=== PATIENT | male | born 1965 | race Caucasian/White ===

== ENCOUNTER → 2016-10-14 | Outpatient (CLI) | payer OTHER ==
--- NOTE | 2016-10-14 14:01 | Diagnostic Imaging Report ---
PA and lateral views of the chest Indication: Cough Findings: The lungs are clear. The heart size is normal. There is no effusion or pneumothorax The mediastinum and dennise appear unremarkable. Impression: Unremarkable study. Dictated by: Dictated on workstation # [id number]
== END ==
LOC: RAD 13:03
PROVIDERS: ATTEND Family Medicine
DX: R05 Cough (principal)
CPT/HCPCS: 71020

== ENCOUNTER 2016-10-22 16:50 | Emergency (ER) | payer OTHER ==
[~2016-10-22] VITALS: Ht 177.8 cm; Wt 83.9 kg
--- NOTE | 2016-10-22 17:04 | ED General ---
General Chief Complaint: Dizziness/Syncope Stated Complaint: DIZZY Nursing Triage Note: patient reports dizziness since tuesday, patient went to pcp and was given medication for dizziness and didn't improve. was sent here by pcp for CT Nursing Sepsis Screen: No Definite Risk Source of Information: Patient Exam Limitations: No Limitations History of Present Illness Time Seen by Provider: 17:02 Initial Comments To ER with dizziness since Tuesday. He's never had this before. Today is Tuesday. He saw Dr. Dr. Iqbal the onset of this and was given meclizine. States that it doesn't help much, just makes him sleepy. States that he certainly nonfunctional will taking the meclizine. States that when he walks he drifts to the left. He does not notice any headaches or unilateral weakness. He was sent here by Dr. Kim's office. He saw Dr. Dr. Iqbal today for follow-up and denied improvement. Dr. Iqbal spoke with neurology at [facility] who recommended he be sent to the emergency room for CT angiogram and schedule an MRI. Timing/Duration: 1-2 Days Severity: Moderate Allergies and Home Medications Allergies Coded Allergies: No Allergy Information Available (Unverified , 10/22/16) Home Medications Diazepam 2 Mg Tablet, #28 (Reported) Montelukast Sodium 10 Mg Tablet, #30 (Reported) Constitutional: see HPI EENTM: see HPI Respiratory: no symptoms reported Cardiovascular: no symptoms reported Genitourinary: no symptoms reported Musculoskeletal: no symptoms reported Skin: no symptoms reported Psychiatric/Neurological: No Symptoms Reported Hematologic/Lymphatic: No Symptoms Reported Past Ktvbyzk-Lfvotk-Zwuhlv Hx Patient Social History Alcohol Use: Denies Use Recreational Drug Use: No Smoking Status: Never a Smoker Recent Foreign Travel: No Contact w/Someone Who Travel: No Recent Infectious Disease Expo: No Surgeries Surgeries: Orthopedic Physical Exam Vital Signs Vital Sign - Last 12Hours 10/22/16 16:55 Temp 98.2 Pulse 72 Resp 18 B/P (MAP) 142/95 Pulse Ox 97 O2 Delivery Room Air Capillary Refill : Less Than 3 Seconds General Appearance: No Apparent Distress, WD/WN Eyes: Bilateral Eye EOMI, Bilateral Eye Normal Inspection, Bilateral Eye PERRL HEENT: PERRL/EOMI, TMs Normal, Other (there is some horizontal nystagmus) Neck: Full Range of Motion, Normal Inspection Respiratory: No Accessory Muscle Use, No Respiratory Distress Cardiovascular: Regular Rate, Rhythm, Normal Peripheral Pulses Extremity: Normal Capillary Refill, Normal Inspection Neurologic/Psychiatric: Alert, Oriented x3, No Motor/Sensory Deficits Skin: Normal Color, Warm/Dry Progress/Results/Core Measures Results/Orders My Orders Orders - TIKA BANSAL APRN Saline Lock/Iv-Start (10/22/16 16:53) Ct Angio Head/Neck (10/22/16 16:53) Mri Brain W/Wo Contrast (10/22/16 17:01) Ns Iv 1000 Ml (Sodium Chloride 0.9%) (10/22/16 17:15) Iohexol Injection (Omnipaque 350 Mg/Ml 1 (10/22/16 17:15) Ns (Ivpb) (Sodium Chloride 0.9% Ivpb Bag (10/22/16 17:15) Medications Given in ED Current Medications Medications Dose Ordered Sig/Wilmer Route Start Time Stop Time Status Last Admin Dose Admin Iohexol 100 ml ONCE ONCE IV 10/22/16 17:15 10/22/16 17:16 DC 10/22/16 17:13 85 ML Sodium Chloride 100 ml ONCE ONCE IV 10/22/16 17:15 10/22/16 17:16 DC 10/22/16 17:13 80 ML Vital Signs/I&O Vital Sign - Last 12Hours 10/22/16 16:55 Temp 98.2 Pulse 72 Resp 18 B/P (MAP) 142/95 Pulse Ox 97 O2 Delivery Room Air Blood Pressure Mean: 111 Diagnostic Imaging Diagonstic Imaging: CT Comments MED REC#: [id number] PT STATUS: REG ER : 1965 PHYSICIAN: TIKA BANSAL APRN ADMIT DATE: 10/22/16/ER Draft Date of Exam:10/22/16 CT ANGIO HEAD/NECK PROCEDURE: CT angiography of the head and CT angiography of the neck with and without contrast. TECHNIQUE: Contiguous noncontrast images were obtained from the skull base through the vertex. After intravenous contrast administration, helical CT angiography of the neck was performed. Source data was reformatted into multiple MIP projections. Delayed post contrast acquisition was also obtained. INDICATION: 51-year-old male presents with dizziness for two days, family history of genetic factor for clotting abnormality. Family history of stroke. COMPARISON: CT head from 10/22/16, MRI brain 10/22/16. FINDINGS: There is normal arch origin of the great vessels. Both common carotid arteries are widely patent. Carotid bifurcations, cervical, high cervical, petrous and cavernous segments of both ICA are normal. The A1 and A2 segments of both WILI, M1, M2 and M3 trifurcation vessels of both MCA fill normally. The vertebral arteries are codominant and are widely patent to the skull base. The PICA, basilar artery, AICA, SCA and industry consultant are unremarkable. There is a origin of the right LAST REMODELER REPAIRER with near origin of the left LAST REMODELER REPAIRER due to prominent posterior communicating arteries. This is a normal variation. Lung apices are clear. Superior mediastinum is normal. The parapharyngeal and paraspinous soft tissues are also unremarkable. There is some mild age-appropriate cervical spondylosis with multilevel hypertrophic facet changes. IMPRESSION: 1. Unremarkable CTA head and neck. 2. Some mild cervical spondylosis. Additional nonemergent findings as described above. Dictated on workstation # [id number] Dict: 10/22/161741 Trans: 10/22/161747 [facility] [id number] Interpreted by: DHAVAL MOREIRA MD Electronically signed by: Departure Communication Progress Notes 1913-MRI shows T2 hyperintensities throughout. This concludes small vessel disease or a demyelinating process. 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 He does not take a baby aspirin I advised him to start taking a baby aspirin daily. I discussed the MRI findings with Dr. Hightower, neurologist at the [facility]. She states this is a common finding in the differential is broad. She feels that most certainly workup for this could be deferred to the outpatient setting with a neurologist. Patient is agreeable to this. Impression Impression: Primary Impression: Vertigo Additional Impression: MRI of brain abnormal Disposition: HOME, SELF-CARE Condition: Stable Departure-Patient Inst. Decision time for Depature: 18:21 Referrals: HANNY IQBAL DO (PCP/Family) Primary Care Physician Patient Instructions: Vertigo (a Type of Dizziness) (DC) Add. Discharge Instructions: 1. Follow-up with Dr. Dr. Iqbal on Tuesday for referral to a neurologist 2. Return to ER for any concerns All discharge instructions reviewed with patient and/or family. Voiced understanding. Work/School Note: Work Release Form Date Seen in the Emergency Department: Oct 22, 2016 Return to Work: Oct 24, 2016 Restrictions: No Restrictions Copy Copies To 1: HANNY IQBAL PETER J APRN Oct 22, 2016 17:04
[2016-10-22] MEDS ORDERED: DIAZ2TAB2 (17:05)
[2016-10-22] MEDS ORDERED: MONT10TA24 (17:05)
[2016-10-22] MEDS: IOHEXOL 350 MG/ML 100 ML (OMNIPAQUE 350) VIAL IV ONE (17:13)
[2016-10-22] MEDS: NS 100 ML (IVPB) BAG IV ONE (17:13)
[2016-10-22] MEDS ORDERED: GADOBUTROL 10 MMOL/10 ML (GADAVIST) VIAL IV ONE (17:45)
--- NOTE | 2016-10-22 17:48 | Diagnostic Imaging Report ---
PROCEDURE: CT angiography of the head and CT angiography of the neck with and without contrast. TECHNIQUE: Contiguous noncontrast images were obtained from the skull base through the vertex. After intravenous contrast administration, helical CT angiography of the neck was performed. Source data was reformatted into multiple MIP projections. Delayed post contrast acquisition was also obtained. INDICATION: 51-year-old male presents with dizziness for two days, family history of genetic factor for clotting abnormality. Family history of stroke. COMPARISON: CT head from 10/22/16, MRI brain 10/22/16. FINDINGS: There is normal arch origin of the great vessels. Both common carotid arteries are widely patent. Carotid bifurcations, cervical, high cervical, petrous and cavernous segments of both ICA are normal. The A1 and A2 segments of both WILI, M1, M2 and M3 trifurcation vessels of both MCA fill normally. The vertebral arteries are codominant and are widely patent to the skull base. The PICA, basilar artery, AICA, SCA and local hazmat driver are unremarkable. There is a origin of the right NETWORK OPERATIONS SPECIALIST with near origin of the left NETWORK OPERATIONS SPECIALIST due to prominent posterior communicating arteries. This is a normal variation. Lung apices are clear. Superior mediastinum is normal. The parapharyngeal and paraspinous soft tissues are also unremarkable. There is some mild age-appropriate cervical spondylosis with multilevel hypertrophic facet changes. IMPRESSION: 1. Unremarkable CTA head and neck. 2. Some mild cervical spondylosis. Additional nonemergent findings as described above. Dictated by: Dictated on workstation # [id number]
--- NOTE | 2016-10-22 18:17 | Diagnostic Imaging Report ---
PROCEDURE: MR imaging of the brain with and without contrast. TECHNIQUE: Multiplanar, multisequence MR imaging of the brain was performed with and without contrast. INDICATION: 51-year-old male with persistent dizziness for three days. COMPARISON: CT head from 10/22/16, CTA head and neck from 10/22/16. FINDINGS: Midline structures are not displaced. Lateral, third and fourth ventricles are normal in size, shape and anatomic position. There is no evidence of mass, mass effect, hydrocephalus or hemorrhage. There are, however, multiple subcortical, periventricular as well as deep white matter T2 hyperintensities, best appreciated on the FLAIR signal. No area of diffusion restriction or diffusion signal abnormality is seen. No abnormal areas of enhancement are seen. López-white differentiation is well maintained. There is no sulcal effacement. There are no abnormal extra-axial fluid collections or hemorrhage. Petrous apices as well as the seventh and eighth nerve complexes are normal. Semicircular canal and cochlea show normal signal. Visualized vascular flow voids are unremarkable. Craniovertebral junction is normal. The sellar and suprasellar regions are unremarkable. Sinuses show acute on chronic pansinusitis. Orbits and mastoid air cells are grossly normal. IMPRESSION: 1. Extensive periventricular, subcortical and deep white matter T2 hyperintensities, advanced for age. Although the differential does include small vessel disease, the pattern and distribution of which also suggests a demyelinating process such as MS. There is, however, no evidence of diffusion restriction or abnormal areas of enhancement to suggest active areas of demyelination. Correlate clinically and with serology. 2. Acute on chronic pansinusitis. Additional nonemergent findings as described above. Dictated by: Dictated on workstation # [id number]
[2016-10-22] MEDS: NS IV 1000 ML 1,000 ML IV SCH (18:23)
[2016-10-22] MEDS: DEXAMETHASONE PF 10 MG/ML (DECADRON) VIAL IV ONE (19:17)
[2016-10-22] MEDS: DEXAMETHASONE PF 10 MG/ML (DECADRON) VIAL ONE (19:34)
[2016-10-22 19:39] VITALS: BP 143/93
== END 2016-10-22 19:39 | disposition home or self-care (01) ==
LOC: EDUNIT# 16:50 → ER 16:52
DX: H81.12 Benign paroxysmal vertigo, left ear (principal); D68.59 Other primary thrombophilia; R94.02 Abnormal brain scan
CPT/HCPCS: 70496; 70498; 70553

== ENCOUNTER → 2016-10-22 | Outpatient (CLI) | payer OTHER ==
[~2016-10-22] MED LIST: DIAZ2TAB2; MONT10TA24
--- NOTE | 2016-10-22 13:42 | Diagnostic Imaging Report ---
CLINICAL INDICATION: Patient with dizziness since Tuesday. No injury. EXAM: Axial CT scan of the brain performed without IV contrast. COMPARISON: None. FINDINGS: There is no evidence of acute cerebral infarct, intracranial hemorrhage, or gross mass effect. There is a few focal and patchy areas of low-attenuation white matter changes seen within both cerebral hemispheres predominantly in the subcortical regions. There is normal kingston-white matter distinction. The brain parenchymal volume appears appropriate for patient's age. There is no significant midline shift or herniation. There is no evidence of hydrocephalus. The basal cisterns are unremarkable. The skull, extracranial soft tissue, and orbits are unremarkable. There is a small mucous retention cyst involving the right maxillary sinus. There is moderate mucosal thickening involving the ethmoid sinus and mild mucosal thickening involving the sphenoid sinus. IMPRESSION: 1: There are nonspecific focal and patchy areas of low-attenuation white matter changes in both cerebral hemispheres. Given patient's age, these may represent chronic small vessel ischemic changes. Since there is no prior brain imaging for comparison, other etiologies such as ischemic process, vasculitis, or demyelinating process. If there is concern for acute process, then MRI of the brain with and without IV contrast would help better evaluate. 2: Otherwise, the remainder of the brain is unremarkable for patient's age. Report was called and faxed to Tania/college service officer of Dr. Olivas by cassidy at 1:41 p.m. Dictated by: Dictated on workstation # [id number]
== END ==
LOC: RAD 11:52
PROVIDERS: ATTEND Family Medicine
DX: R42 Dizziness and giddiness (principal)
CPT/HCPCS: 70450

== ENCOUNTER → 2017-01-14 | Outpatient (CLI) | payer OTHER ==
--- NOTE | 2017-01-14 11:47 | Diagnostic Imaging Report ---
PROCEDURE: US Carotid Duplex Bilateral. TECHNIQUE: Multiple real-time grayscale images were obtained over the carotid arteries in various projections bilaterally. Additional duplex Doppler and color Doppler images were also obtained. Indication: Intermittent dizziness, carotid stenosis. Comparison: None. Discussion: Sonographic evaluation of the common and internal carotid arteries and bilateral vertebral arteries was performed with a linear transducer. Images were assessed for grayscale appearance, spectral and color Doppler blood flow. No significant atherosclerotic plaque identified within either carotid bifurcation. Normal flow velocities are present within the bilateral internal and external carotid arteries. Normal antegrade flow within the bilateral vertebral arteries. Impression: 1. The bilateral carotid bifurcations are widely patent. Dictated by: Dictated on workstation # [id number]
== END ==
LOC: RAD 10:29
PROVIDERS: ATTEND Otolaryngology Otolaryngology/Facial Plastic Surgery
DX: R42 Dizziness and giddiness (principal); Z83.2 Family history of diseases of the blood and blood-forming organs and certain disorders involving the immune mechanism
CPT/HCPCS: 93005; 93880

== ENCOUNTER → 2017-01-28 | Outpatient (CLI) | payer OTHER | LOC: CARD 08:41 | PROVIDERS: ATTEND Otolaryngology Otolaryngology/Facial Plastic Surgery | DX: I34.0 Nonrheumatic mitral (valve) insufficiency (principal) | CPT/HCPCS: 93306 ==

== ENCOUNTER 2018-01-22 10:32 | Emergency (ER) | payer OTHER ==
[~2018-01-22] VITALS: Ht 177.8 cm; Wt 86.2 kg
[2018-01-22] MEDS ORDERED: ASPIRIN 81 MG CHEW (CHILDREN'S ASA) PO ONE (10:45)
[2018-01-22 10:53] LABS: BASOPHILS % (AUTO) 0 % (0-10); EOSINOPHILS # (AUTO) 0.5 10^3/uL (0.0-0.3); EOSINOPHILS % (AUTO) 6 % (0-10); HEMATOCRIT 32 % (40-54); HEMOGLOBIN 11.6 G/DL (13.3-17.7); LYMPHOCYTES # (AUTO) 3.1 X 10^3 (1.0-4.0); LYMPHOCYTES % (AUTO) 39 % (12-44); MEAN CORPUSCULAR HEMOGLOBIN 34 PG (25-34); MEAN CORPUSCULAR HGB CONC 37 G/DL (32-36); MEAN CORPUSCULAR VOLUME 94 FL (80-99); MONOCYTES # (AUTO) 0.8 X 10^3 (0.0-1.0); MONOCYTES % (AUTO) 9 % (0-12); NEUTROPHILS # (AUTO) 3.7 X 10^3 (1.8-7.8); NEUTROPHILS % (AUTO) 46 % (42-75); PLATELET COUNT 228 10^3/uL (130-400); RED BLOOD COUNT 3.37 10^6/uL (4.35-5.85); RED CELL DISTRIBUTION WIDTH 12.5 % (10.0-14.5); WHITE BLOOD COUNT 8.1 10^3/uL (4.3-11.0)
[2018-01-22 11:12] LABS: ALANINE AMINOTRANSFERASE 76 U/L (0-55); ALBUMIN 4.4 GM/DL (3.2-4.5); ALKALINE PHOSPHATASE 92 U/L (40-136); BILIRUBIN,TOTAL 0.6 MG/DL (0.1-1.0); BUN/CREATININE RATIO 16; CALCIUM 9.5 MG/DL (8.5-10.1); CARBON DIOXIDE 18 MMOL/L (21-32); CHLORIDE 108 MMOL/L (98-107); CREATININE SERUM 1.07 MG/DL (0.60-1.30); GFR ESTIMATED > 60; GLUCOSE 108 MG/DL (70-105); MAGNESIUM 2.1 MG/DL (1.8-2.4); POTASSIUM 3.4 MMOL/L (3.6-5.0); SODIUM 139 MMOL/L (135-145)
[2018-01-22 11:13] LABS: INR 1.1 (0.8-1.4); PROTHROMBIN TIME PATIENT 13.7 SEC (12.2-14.7)
[2018-01-22 11:15] VITALS: BP 134/83
[2018-01-22 11:18] LABS: MYOGLOBIN SERUM 36.3 NG/ML (10.0-92.0)
--- NOTE | 2018-01-22 11:18 | Diagnostic Imaging Report ---
INDICATION: Syncope COMPARISON: 10/14/2016 TECHNIQUE: Single frontal radiograph of the chest dated 01/22/2018. FINDINGS: The cardiac silhouette is upper limits of normal in size. No significant pulmonary vascular congestion. The lungs are clear. No pleural effusion. No pneumothorax. No acute osseous abnormality. IMPRESSION: Stable appearing examination without acute cardiopulmonary abnormality. Dictated by: Dictated on workstation # [id number]
--- NOTE | 2018-01-22 11:29 | ED Syncope ---
General Chief Complaint: Dizziness/Syncope Stated Complaint: SYNCOPE Nursing Triage Note: WAS BROUGHT TO ED BY FRIENDS FROM [facility] REQUEST TO US BATHROOM ON ADMIT. REPORTS THAT HE HAS TROUBLE WITH CONSTIPATION AND HE TOOK A LAXATIE LAST NIGHT,AND TODAY WAS GIVING COMMUNION AT [facility] WHEN HE FELT HIS ABD START CRAMPING THAN BECAME DIZZY THAT IS THE LAST THING HE REMEMBERED. History of Present Illness Date Seen by Provider: Jan 22, 2018 Time Seen by Provider: 10:32 Initial Comments Here with report of syncopal episode while at [facility]. 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 He was hopeful that he was going to be able to make it through communion and then try to go to the bathroom but cramping became quite severe. This is when he got sweaty and pale. He was noted by other parishioners and then taken to a side room. He did pass out while sitting at a chair. No injury from that and he was only out for a few seconds before regaining consciousness. On arrival here he did have a large bowel movement. States that he has been constipated recently and took laxative last night which appears to be working quite well now. States he does suffer from intermittent constipation. Timing/Prior Episodes: Remote History, Single Episode Today Symptoms Prior to Episode: Lightheadedness, Nausea, Pain, Other (abdominal cramping) Precipitating Factors: Activity Loss of Consciousness: Brief (Seconds) Current Symptoms: Back to Normal; No Chest Pain, No Injury, No Lightheadedness , No Shallow/Rapid Breathing, No Weak/Absent Pulse, No Weakness Allergies and Home Medications Allergies Coded Allergies: No Allergy Information Available (Unverified , 10/22/16) Home Medications No Active Prescriptions or Reported Meds Patient Home Medication List Home Medication List Reviewed: Yes Review of Systems Constitutional: see HPI; No chills; diaphoresis; No fever; weakness EENTM: no symptoms reported Respiratory: see HPI; No cough, No wheezing Cardiovascular: No chest pain; syncope Gastrointestinal: abdominal pain, constipation; No nausea, No vomiting Genitourinary: no symptoms reported Musculoskeletal: no symptoms reported Skin: change in color; No lesions Psychiatric/Neurological: See HPI All Other Systems Reviewed Negative Unless Noted: Yes Past Lddoles-Zmgksn-Kcvjbq Hx Past Med/Social Hx: Reviewed Nursing Past Med/Soc Hx Patient Social History Alcohol Use: Denies Use Recreational Drug Use: No Smoking Status: Never a Smoker Recent Foreign Travel: No Contact w/Someone Who Travel: No Recent Infectious Disease Expo: No Past Medical History Surgeries: Yes (R knee, L knee scope) Orthopedic Respiratory: No Cardiac: No Neurological: No Genitourinary: No Gastrointestinal: No Musculoskeletal: No Endocrine: No HEENT: No Cancer: No Psychosocial: No Integumentary: No Blood Disorders: No Family Medical History Reviewed Nursing Family Hx No Pertinent Family Hx Physical Exam Vital Signs Vital Signs - First Documented 01/22/18 10:32 Temp 96.8 Pulse 52 Resp 18 B/P (MAP) 138/81 (100) Pulse Ox 100 O2 Delivery Room Air Capillary Refill : Less Than 3 Seconds Height, Weight, BMI Height: 5'10.00" Weight: 190lbs. oz. 86.446047ci; BMI Method:Stated General Appearance: No Apparent Distress, WD/WN HEENT: PERRL/EOMI, Pharynx Normal Neck: Non Tender, Supple Cardiovascular: Regular Rate, Rhythm, No Murmur Respiratory: Lungs Clear, Normal Breath Sounds Gastrointestinal: Non Tender, Soft Back: Normal Inspection, No CVA Tenderness, No Vertebral Tenderness Extremities: Normal Range of Motion, Non Tender Neurologic/Psychiatric: Alert, Oriented x3 Cranial Nerves: Normal Hearing, Normal Speech Motor/Sensory: No Motor Deficit, No Sensory Deficit Skin: Normal Color, Warm/Dry Progress/Results/Core Measures Results/Orders Lab Results Laboratory Tests Test 01/22/18 10:45 01/22/18 10:51 Range/Units White Blood Count 8.1 4.3-11.0 10^3/uL Red Blood Count 3.37 L 4.35-5.85 10^6/uL Hemoglobin 11.6 L 13.3-17.7 G/DL Hematocrit 32 L 40-54 % Mean Corpuscular Volume 94 80-99 FL Mean Corpuscular Hemoglobin 34 25-34 PG Mean Corpuscular Hemoglobin Concent 37 H 32-36 G/DL Red Cell Distribution Width 12.5 10.0-14.5 % Platelet Count 228 130-400 10^3/uL Mean Platelet Volume 10.0 7.4-10.4 FL Neutrophils (%) (Auto) 46 42-75 % Lymphocytes (%) (Auto) 39 12-44 % Monocytes (%) (Auto) 9 0-12 % Eosinophils (%) (Auto) 6 0-10 % Basophils (%) (Auto) 0 0-10 % Neutrophils # (Auto) 3.7 1.8-7.8 X 10^3 Lymphocytes # (Auto) 3.1 1.0-4.0 X 10^3 Monocytes # (Auto) 0.8 0.0-1.0 X 10^3 Eosinophils # (Auto) 0.5 H 0.0-0.3 10^3/uL Basophils # (Auto) 0.0 0.0-0.1 10^3/uL Prothrombin Time 13.7 12.2-14.7 SEC INR Comment 1.1 0.8-1.4 Activated Partial Thromboplast Time 24 24-35 SEC D-Dimer 0.36 0.00-0.49 UG/ML Sodium Level 139 135-145 MMOL/L Potassium Level 3.4 L 3.6-5.0 MMOL/L Chloride Level 108 H 98-107 MMOL/L Carbon Dioxide Level 18 L 21-32 MMOL/L Anion Gap 13 5-14 MMOL/L Blood Urea Nitrogen 17 7-18 MG/DL Creatinine 1.07 0.60-1.30 MG/DL Estimat Glomerular Filtration Rate > 60 BUN/Creatinine Ratio 16 Glucose Level 108 H 70-105 MG/DL Calcium Level 9.5 8.5-10.1 MG/DL Corrected Calcium 9.2 8.5-10.1 MG/DL Magnesium Level 2.1 1.8-2.4 MG/DL Total Bilirubin 0.6 0.1-1.0 MG/DL Aspartate Amino Transf (AST/SGOT) 38 H 5-34 U/L Alanine Aminotransferase (ALT/SGPT) 76 H 0-55 U/L Alkaline Phosphatase 92 40-136 U/L Myoglobin 36.3 10.0-92.0 NG/ML Troponin I < 0.30 <0.30 NG/ML Total Protein 7.0 6.4-8.2 GM/DL Albumin 4.4 3.2-4.5 GM/DL TSH [place] Testing 1.23 0.35-4.94 UIU/ML My Orders Orders - TABBY MERAZ MD Ekg Tracing (01/22/18 10:33) Cbc With Automated Diff (01/22/18 10:38) Magnesium (01/22/18 10:38) Chest 1 View, Ap/Pa Only (01/22/18 10:38) Cardiac Profile 1 (01/22/18 10:38) Comprehensive Metabolic Panel (01/22/18 10:38) Myoglobin Serum (01/22/18 10:38) Protime With Inr (01/22/18 10:38) Partial Thromboplastin Time (01/22/18 10:38) O2 (01/22/18 10:38) Monitor-Rhythm Ecg Trace Only (01/22/18 10:38) Lipid Panel (01/23/18 06:00) Aspirin Chewable Tablet (Baby Aspirin Ch (01/22/18 10:45) Saline Lock/Iv-Start (01/22/18 10:38) Thyroid Analyzer (01/22/18 10:49) Fibrin Degradation Products (01/22/18 10:45) Medications Given in ED Current Medications Medications Dose Ordered Sig/Wilmer Route Start Time Stop Time Status Last Admin Dose Admin Aspirin 324 mg ONCE ONCE PO 01/22/18 10:45 01/22/18 10:46 DC 01/22/18 10:52 324 MG Vital Signs/I&O 01/22/18 01/22/18 01/22/18 10:32 11:15 13:09 Temp 96.8 Pulse 52 61 57 Resp 18 B/P (MAP) 138/81 (100) 134/83 (100) 122/68 (86) Pulse Ox 100 100 98 O2 Delivery Room Air Room Air Room Air Blood Pressure Mean: 100 Progress Progress Note : Progress Note Seen and evaluated. Labs, EKG, chest x-ray, ASA 324 mg by mouth, d-dimer and thyroid study ordered. Monitor patient. 1325: Patient much better and tolerated by mouth fluids. He is hungry now. He did have a large bowel movement earlier. No acute findings on exam. He has some minor lab abnormalities will follow-up with his doctor. Discharged home with return precautions. Patient verbalize understanding of instructions and agreement with plan. Initial ECG Impression Date: Jan 22, 2018 Initial ECG Impression Time: 10:39 Initial ECG Rate: 56 Initial ECG Rhythm: Normal Sinus Comment Sinus rhythm with normal axis. No evidence of ST elevation CT. Similar to previous of 01/14/17. Interpreted by me. Diagnostic Imaging Diagonstic Imaging: Xray Plain Films/CT/US/NM/MRI: chest Comments VIA [facility]. [place], [place] NAME: ULISES GURROLA [facility] REC#: [id number] PT STATUS: REG ER : 1965 PHYSICIAN: TABBY MERAZ MD ADMIT DATE: 01/22/18/ER Draft Date of Exam:01/22/18 CHEST 1 VIEW, AP/PA ONLY INDICATION: Syncope COMPARISON: 10/14/2016 TECHNIQUE: Single frontal radiograph of the chest dated 01/22/2018. FINDINGS: The cardiac silhouette is upper limits of normal in size. No significant pulmonary vascular congestion. The lungs are clear. No pleural effusion. No pneumothorax. No acute osseous abnormality. IMPRESSION: Stable appearing examination without acute cardiopulmonary abnormality. Dictated on workstation # [id number] Dict: 01/22/18 1113 Trans: 01/22/18 1117 JULIO [id number] Interpreted by: JOE BRIDGES MD Electronically signed by: Departure Impression Primary Impression: Vasovagal syncope Additional Impression: Constipation Qualified Codes: K59.00 - Constipation, unspecified Disposition: HOME, SELF-CARE Condition: Improved Departure-Patient Inst. Decision time for Depature: 13:34 Referrals: HANNY IQBAL DO (PCP/Family) Primary Care Physician Patient Instructions: Constipation, Adult (DC), Syncope (Fainting) (DC) Add. Discharge Instructions: All discharge instructions reviewed with patient and/or family. Voiced understanding. Drink plenty of fluids. You should rest today. Follow-up with your doctor this week for recheck and further evaluation. You should consider taking MiraLAX one half to one capful twice daily as needed to keep stools soft. You may increase or decrease the dose to keep stools in normal range. Return for worse pain, fever, vomiting, weakness, breathing problems or other concerns as needed. Scripts No Active Prescriptions or Reported Meds Copy Copies To 1: COLBY KNUTSON MD, TIMOTHY D MD Jan 22, 2018 11:29
[2018-01-22 11:39] LABS: FIBRIN DEGRADATION PRODUCTS 0.36 UG/ML (0.00-0.49)
[2018-01-22 13:09] VITALS: BP 122/68
[2018-01-22 13:40] VITALS: BP 122/85
[2018-02-02] MEDS ORDERED: ASPI-586 PO (11:25)
== END 2018-01-22 13:40 | disposition home or self-care (01) ==
LOC: EDUNIT# 10:32 → ER 10:33
DX: R55 Syncope and collapse (principal); K59.00 Constipation, unspecified
CPT/HCPCS: 36415; 71045; 80053; 83735; 83874; 84443; 84484; 85025; 85379; 85610; 85730; 93005; 93041

== ENCOUNTER 2018-02-02 11:30 | Outpatient (CLI) | payer OTHER ==
[~2018-02-02] VITALS: Ht 177.8 cm; Wt 87.1 kg
[~2018-02-02 11:30] MED LIST changes: +ASPI-586 PO
== END 2018-02-02 11:53 | disposition home or self-care (01) ==
LOC: PREOP 11:30
PROVIDERS: ATTEND Surgery
DX: Z01.818 Encounter for other preprocedural examination (principal)

== ENCOUNTER 2018-02-06 06:59 | Day surgery (SDC) | payer OTHER ==
[~2018-02-06] VITALS: Ht 177.8 cm; Wt 87.1 kg
[2018-02-06] MEDS ORDERED: LACTATED RINGERS 1,000 ML IV ONE (07:44)
[2018-02-06] MEDS ORDERED: PROPOFOL INJECTION 50 ML IV ONE (07:53)
[2018-02-06] MEDS ORDERED: MIDAZOLAM 2 MG/2 ML (VERSED) VIAL ONE ×2 (07:53→07:54)
[2018-02-06] MEDS ORDERED: LACTATED RINGERS 1,000 ML IV STA (08:13)
[2018-02-06 08:17] VITALS: BP 131/87
--- NOTE | 2018-02-06 09:09 | History & Physicial ---
History of Present Illness History of Present Illness Reason for visit/HPI to undergo screening colonoscopy. No family history of colon cancer. Date of Admission 02/06/18 Date Seen by Provider: Feb 06, 2018 Time Seen by Provider: 09:08 I consulted on this patient on 02/06/18 09:07 Attending Physician Adolfo Desai MD Admitting Physician Soledad Onofre MD Consult Allergies and Home Medications Allergies Coded Allergies: No Known Drug Allergies (Unverified , 02/02/18) Home Medications Aspirin 81 Mg Tablet.dr, 81 MG PO DAILY, (Reported) Patient Home Medication List Home Medication List Reviewed: Yes Past Adhxdel-Hdbncz-Tgohav Hx Patient Social History Marrital Status: Employed/Student: self-employed Alcohol Use: Denies Use Recreational Drug Use: No Smoking Status: Never a Smoker Recent Foreign Travel: No Contact w/other who traveled: No Recent Hopitalizations: No Seasonal Allergies Seasonal Allergies: No Surgeries Yes (R knee, L knee scope) Orthopedic, Vasectomy Respiratory No Cardiovascular No Neurological No Reproductive System Hx Reproductive Disorders: No Genitourinary No Gastrointestinal No Musculoskeletal No Endocrine History of Endocrine Disorders: No HEENT History of HEENT Disorders: No Cancer No Psychosocial History of Psychiatric Problem: No Integumentary History of Skin or Integumenta: No Blood Transfusions History of Blood Disorders: No Family Medical History Significant Family History: No Pertinent Family Hx Review of Systems Constitutional: no symptoms reported EENTM: no symptoms reported Respiratory: no symptoms reported Cardiovascular: no symptoms reported Gastrointestinal: no symptoms reported Genitourinary: no symptoms reported Musculoskeletal: no symptoms reported Skin: no symptoms reported Psychiatric/Neurological: No Symptoms Reported Physical Exam Vital Signs Vital Signs - First Documented 02/06/18 08:17 Temp 97.8 Pulse 69 Resp 20 B/P (MAP) 131/87 (102) Pulse Ox 99 O2 Delivery Nasal Cannula Capillary Refill : Height, Weight, BMI Height: 5'10.00" Weight: 192lbs. 0.0oz. 87.536558vm; 27.6 BMI Method:Stated General Appearance: No Apparent Distress Neck: Normal Inspection Respiratory: Lungs Clear Cardiovascular: Regular Rate, Rhythm Gastrointestinal: Non Tender, Soft Rectal: Deferred Neurologic/Psychiatric: Alert, Oriented x3 Skin: Warm/Dry Assessment/Plan Assessment and Plan gentleman here to undergo screening colonoscopy. Discussed in detail. Admission Diagnosis Admission Status: Other (Outpt Proc) DESAI,ADOLFO M MD Feb 06, 2018 09:09
--- NOTE | 2018-02-06 09:09 | Conscious Sedation/ASA ---
Conscious Sedation Pre-Proced Time Reviewed: 09:09 ASA Class: 2 Airway Mallampati Classification: ([place] appropriate class) I. II. III, IV Lungs Heart ASA score ASA 1: a normal healthy patient ASA 2: a patient with a mild systemic disease (mid diabetes, controlled hypertension, obesity ASA 3: a patient with a severe systemic disease that limits activity (angina , COPD, prior Myocardial infarction) ASA 4: a patient with an incapacitating disease that is a constant threat to life (CHF, renal failure) ASA 5: a moribund patient not expected to survive 24 hrs. (ruptured aneurysm) ASA 6: a declared brain patient whose organs are being harvested. For emergent operations, add the letter E after the classification Grade 1 Sedation Plan: Discussed options with patient/fam Note The patient is an appropriate candidate to undergo the planned procedure, sedation, and anesthesia. The patient immediately re-assessed prior to indication. ADOLFO VARELA MD Feb 06, 2018 09:09
--- NOTE | 2018-02-06 09:25 | Endo Procedure Record ---
Endo Procedure Report Date of Procedure Last Colonoscopy: No Feb 06, 2018 Surgeon (s) ADOLFO VARELA MD Post Procedure/Op Diagnosis very few sigmoid diverticulae Procedure Performed colonoscopy to cecum Description of Procedure Anesthesia Type: Conscious Sedation Specimen(s) collected/removed none Description of the Procedure Indication for the procedure: This gentleman came in for screening colonoscopy. He denied any relevant family history. Informed consent was obtained after reviewing the procedure in detail. Description of procedure: He was placed in left lateral decubitus position and his vital signs were monitored. Conscious sedation was achieved using propofol infusion by our [employer] [facility]. Digital rectal examination was unremarkable. The colonoscope was introduced in the rectum and advanced all the way up to the cecum. Quality of bowel preparation was excellent. The scope was then withdrawn slowly and the mucosa examined in a systematic fashion. Finding: Very few sigmoid diverticulae. He tolerated the procedure well and was taken back to the nursing area in a stable condition. Impression: Doing colonoscopy no polyps. No family history. Recommend repeat in 10 years. Copy Copies To 1: COLBY KNUTSON MD, XAVIER M MD Feb 06, 2018 09:25
--- NOTE | 2018-02-06 09:26 | Discharge Inst-Simple/Standard ---
Discharge Inst-Standard Discharge Medications New, Converted or Re-Newed RX: Other Patient Instructions/Follow Up Plan of Care/Instructions/FU: repeat colonoscopy in 10 years Activity as Tolerated: Yes Discharge Diet: No Restrictions ADOLFO VARELA MD Feb 06, 2018 09:26
[2018-02-06 09:50] VITALS: BP 107/61
[2018-02-06 10:20] VITALS: BP 112/83
[2018-02-06 10:40] VITALS: BP 112/83
--- NOTE | 2018-02-06 14:06 | Anesthesia-General Post-Op ---
MAC Patient Condition Mental Status/LOC: Same as Preop Cardiovascular: Satisfactory Nausea/Vomiting: Absent Respiratory: Satisfactory Pain: Controlled Complications: Absent Post Op Complications Complications None Follow Up Care/Instructions Patient Instructions None needed. Anesthesiology Discharge Order Discharge Order Patient is doing well, no complaints, stable vital signs, no apparent adverse anesthesia problems. No complications reported per nursing. BLAIR MONGE CRNA Feb 06, 2018 14:06
== END 2018-02-06 10:40 | disposition home or self-care (01) ==
LOC: ENDO 06:59
PROVIDERS: ATTEND Surgery
DX: Z12.11 Encounter for screening for malignant neoplasm of colon (principal); K57.30 Diverticulosis of large intestine without perforation or abscess without bleeding; Z79.82 Long term (current) use of aspirin

== ENCOUNTER → 2018-10-25 | Outpatient (CLI) | payer OTHER ==
--- NOTE | 2018-10-25 10:16 | Diagnostic Imaging Report ---
PROCEDURE: MR imaging of the brain without contrast. TECHNIQUE: Multiplanar, multisequence MR imaging of the brain was performed without contrast. INDICATION: Severe headache and left facial paresthesia. Comparison is made to study of 10/22/2016. FINDINGS: Ventricles and sulci remain within normal limits for size. The numerous scattered areas of predominantly subcortical T2 prolongation are again seen within both cerebral hemispheres. The areas of involvement of the deep white matter and corpus callosum have not changed. There is no restricted diffusion. There is no abnormal mass effect or shift of midline structures. Mural thickening is again seen within bilateral ethmoid air cells and the right frontal sinus. Small mucous retention cyst or polyp in right maxillary sinus. IMPRESSION: Stable overall appearance of nonspecific white matter findings. Again the differential includes chronic microvascular ischemia which can be related to vasculitis and possible demyelination such as multiple sclerosis. There is no significant progression or evidence of infarct. There is mild worsening of chronic paranasal sinus disease. Dictated by: Dictated on workstation # [id number]
== END ==
LOC: RAD 08:25
PROVIDERS: ATTEND Family Medicine
DX: I67.82 Cerebral ischemia (principal); J32.8 Other chronic sinusitis
CPT/HCPCS: 70551

== ENCOUNTER → 2019-02-27 | Outpatient (CLI) | payer OTHER ==
--- NOTE | 2019-02-27 09:16 | Diagnostic Imaging Report ---
INDICATION: Elevated liver enzyme TECHNIQUE: Multiple grayscale sonographic images were obtained of the right upper quadrant of the abdomen. CORRELATION STUDY: None FINDINGS: LIVER: There is uniform echotexture within the visualized portions of the liver. Liver length is 15.7 cm. GALLBLADDER: The gallbladder demonstrates no definitive shadowing gallstones. No abnormal gallbladder wall thickening or pericholecystic fluid. COMMON BILE DUCT: Nondilated at 2 mm. PANCREAS: Visualized portions appearing unremarkable. RIGHT KIDNEY: Measures 11.0 x 5.0 x 5.3 cm. No hydronephrosis. AORTA/IVC: Not well visualized. OTHER: None. IMPRESSION: 1. Unremarkable appearing right upper quadrant abdominal ultrasound. Dictated by: Dictated on workstation # [id number]
== END ==
LOC: RAD 08:16
PROVIDERS: ATTEND Nurse Practitioner Family
DX: R94.5 Abnormal results of liver function studies (principal)
CPT/HCPCS: 76705

== ENCOUNTER → 2019-04-02 | Outpatient (CLI) | payer OTHER ==
--- NOTE | 2019-04-02 13:42 | Diagnostic Imaging Report ---
INDICATION: Left-sided flank pain COMPARISON: None FINDINGS: Single supine radiographic view of the abdomen was obtained and demonstrates nondistended loops of small bowel. There is no large collection of free peritoneal air. Mild air and stool are seen scattered throughout the colon. No unexpected extraosseous calcifications or radiopaque foreign bodies are seen. Bony structures show no gross acute abnormalities. IMPRESSION: 1. Nonobstructed small bowel gas pattern. Dictated by: Dictated on workstation # [id number]
== END ==
LOC: RAD 13:08
PROVIDERS: ATTEND Nurse Practitioner Family
DX: R10.9 Unspecified abdominal pain (principal)
CPT/HCPCS: 74018

== ENCOUNTER → 2020-03-25 | Outpatient (CLI) | payer OTHER ==
[~2020-03-25] MED LIST changes: -MONT10TA24; +MONT10TA26
== END ==
LOC: LABNPT 07:36
PROVIDERS: ATTEND Family Medicine
DX: R50.9 Fever, unspecified (principal); R53.81 Other malaise; R05 Cough; Z53.9 Procedure and treatment not carried out, unspecified reason

== ENCOUNTER → 2021-03-18 | Outpatient (CLI) | payer OTHER ==
[~2021-03-18] MED LIST changes: -MONT10TA26; +MONT10TA32
--- NOTE | 2021-03-18 10:51 | Diagnostic Imaging Report ---
PROCEDURE: MR imaging of the brain without contrast. TECHNIQUE: Multiplanar, multisequence MR imaging of the brain was performed without contrast. INDICATION: Increasing tingling and headaches. History of abnormal MRI of the brain COMPARISON: 10/25/2018 FINDINGS: Again identified are fairly extensive scattered and confluent areas of T2/FLAIR bright signal within the periventricular and subcortical deep white matter. Overall, burden of disease appears not significantly changed when compared to 10/25/2018. There is no acute infarct on today's study. There is no new mass effect or midline shift. No intra or extra-axial intracranial hemorrhage is seen. Midline craniocervical anatomy is maintained. Major expected intracranial flow voids are identified. No focal calvarial lesions are seen. Mastoid air cells are clear. Paranasal sinuses show mild scattered mucosal thickening. There is also debris within the right sphenoid sinus and small mucosal retention cyst versus polyp in the right maxillary sinus. IMPRESSION: 1. Redemonstration fairly extensive abnormal T2/FLAIR bright signal within the periventricular and subcortical deep white matter. Differential continues to favor chronic small vessel ischemic changes, although demyelinating process such as multiple sclerosis cannot be excluded. Correlation with spinal tap may be of benefit. 2. No new acute intracranial abnormality. Dictated by: Dictated on workstation # [id number]
== END ==
LOC: RAD 08:00
PROVIDERS: ATTEND Nurse Practitioner Family
DX: R90.82 White matter disease, unspecified (principal); R51.9 Headache, unspecified; R20.2 Paresthesia of skin
CPT/HCPCS: 70551

== ENCOUNTER → 2022-10-04 | Outpatient (CLI) | payer OTHER, SELFPAY ==
[~2022-10-04] MED LIST changes: +MONT-40; -MONT10TA32
--- NOTE | 2022-10-06 11:02 | Diagnostic Imaging Report ---
INDICATION: Coronary artery screening. TECHNIQUE: The CT coronary calcium study was performed with noncontrast images of the heart followed by calculation of the cardiac score. Dose reduction protocol was used. FINDINGS: Raw data images show the lung le to be clear. The entirety of the lungs is not included on the study. There is no pleural fluid. There is no mediastinal or hilar adenopathy. There is no significant coronary artery calcification. The coronary calcium score was 0 in all territories. IMPRESSION: The coronary calcium score was 0 with no significant coronary calcification. Dictated by: Dictated on workstation # [id number]
== END ==
LOC: RAD 07:52
PROVIDERS: ATTEND Nurse Practitioner Family
DX: I10 Essential (primary) hypertension (principal)
CPT/HCPCS: 75571